=== PATIENT | male | born 1955 | race Caucasian/White ===

== ENCOUNTER 2020-02-09 16:11 | Emergency (ER) | payer OTHER ==
[~2020-02-09] VITALS: Ht 165.1 cm; Wt 85.3 kg
[2020-02-09] MEDS ORDERED: METFORMIN HCL500 M3 PO (16:20)
[2020-02-09] MEDS ORDERED: LIPITOR10 MG PO (16:21)
[2020-02-09] MEDS ORDERED: ZESTRIL10 MG PO (16:21)
[2020-02-09 16:36] LABS: ABSOLUTE EOSINOPHILS 0.1 thou/uL (0.0-0.7); ABSOLUTE LYMPHOCYTES 1.5 thou/uL (0.8-5.3); ABSOLUTE MONOCYTES 0.4 thou/uL (0.0-1.2); ABSOLUTE NEUTROPHILS 5.3 thou/uL (1.6-8.1); BASOPHILS 0.7 %; EOSINOPHILS 1.1 %; HEMATOCRIT 46.5 % (42.0-52.0); HEMOGLOBIN 16.1 gm/dL (14.0-18.0); LYMPHOCYTES 19.9 %; MCHC 34.6 g/dL (28.0-37.0); MCV 89.8 fL (80.0-100.0); MONOCYTES 5.8 %; MPV 10.1 fl. (7.2-11.1); NUCLEATED RBCS 0 /100WBC; PLATELET COUNT* 112 thou/uL (150-400); POLYS 72.5 %; RBC 5.18 mil/uL (4.50-6.00); RDW-CV 14.8 % (10.5-14.5); WBC 7.3 thou/uL (4.0-11.0)
[2020-02-09 16:43] LABS: CALCIUM 8.8 mg/dL (8.5-10.1); CREATININE 0.9 mg/dL (0.6-1.3); POTASSIUM 3.9 mmol/L (3.5-5.1)
[2020-02-09 16:48] LABS: ALBUMIN 4.1 g/dL (3.4-5.0); TOTAL BILIRUBIN 0.8 mg/dL (<0.1-1.0); TOTAL PROTEIN 7.8 g/dL (6.4-8.2)
[2020-02-09 16:57] LABS: APTT 25.7 Seconds (25.0-31.3); INR 1.1; PROTIME 10.9 Seconds (9.20-11.50)
[2020-02-09] MEDS ORDERED: OMEPRAZOLE 20 M20 M1 PO (18:56)
[2020-02-09] MEDS ORDERED: CARAFATE1 GM/10 ML PO (18:56)
[2020-02-09 19:06] VITALS: BP 135/75
--- NOTE | 2020-02-11 13:37 | EKG ---
[place] [address] ELECTROCARDIOGRAM REPORT Name: MARIOLA MAZARIEGOS Room: [facility]#: [id number] Admission: 02/09/20 Attend Phys: Discharge: 02/09/20 Date of : 57 Date of Service: 02/09/20 1618 Report #: [id number] THIS REPORT FOR: //name// [facility] ED Test Date: 2020-02-09 Test Time: 16:18:27 Pat Name: MARIOLA MAZARIEGOS Department: Room: Gender: Zanjero: [facility] : 1955 Requested By: Melisa Christian Order Number: [id number] MD: Harvey Mc Measurements Intervals [place] Rate: 89 P: 57 CT: 154 QRS: -2 QRSD: 109 T: 23 QT: 353 QTc: 430 Interpretive Statements Sinus rhythm ST elevation, probably normal variant Baseline wander in lead(s) II,III,aVF No previous ECG available for comparison Electronically Signed On 02-11-2020 13:37:48 CDT by Harvey Mc [email or web address] <ELECTRONICALLY SIGNED> By: Harvey cM MD, FACC 02/11/20 1337 1618 1618 Harvey Mc MD, FAC /EPI
== END 2020-02-09 19:12 | disposition home or self-care (01) ==
LOC: M.ERS 16:11
PROVIDERS: Personal Emergency Response Attendant
DX: R07.89 Other chest pain (principal); I10 Essential (primary) hypertension; E11.9 Type 2 diabetes mellitus without complications; K21.9 Gastro-esophageal reflux disease without esophagitis; Z85.46 Personal history of malignant neoplasm of prostate